=== PATIENT | male | born 1955 | race Caucasian/White ===

== ENCOUNTER → 2017-07-25 | Outpatient (CLI) | payer OTHER ==
[~2017-07-25] MED LIST: METHACHOLINE KIT (J7674) INH
== END ==
LOC: M CARPUL 08:24
DX: R06.02 Shortness of breath (principal)
CPT/HCPCS: J7674

== ENCOUNTER → 2018-05-14 | Outpatient (REF) ==
--- NOTE | 2018-05-15 04:18 | REP ---
Clinical: Pain. Technique: Internal rotation, external rotation, and Y view of the right shoulder. Findings: Moderate age-related degenerative changes include subtle spurring at the acromioclavicular joint. The subacromial space is normal. A small calcification is identified adjacent to the greater tuberosity of the humeral head suggesting calcific tendinopathy. No acute fracture or dislocation appreciated. Impression: Moderate age-related degenerative changes and findings to suggest calcific tendinopathy. Electronically Signed by Bryce Velazquez MD 05/15/2018 04:09 A
--- NOTE | 2018-05-15 04:30 | REP ---
Clinical: Pain and disability. Technique: AP, lateral, bilateral oblique and sunrise views of the left knee. Findings: Mild/moderate tricompartmental degenerative changes include subchondral sclerosis, marginal spurring/osteophyte formation, and minimal predominantly medial joint space narrowing. No acute fracture or dislocation. No effusion. Impression: Moderate tricompartmental degenerative changes. Electronically Signed by Bryce Velazquez MD 05/15/2018 04:22 A
== END ==
LOC: M SMT 09:13
PROVIDERS: ATTEND Internal Medicine
DX: Z02.71 Encounter for disability determination (principal)

== ENCOUNTER → 2019-04-17 | Outpatient (CLI) | payer OTHER | LOC: M LAB 15:03 | PROVIDERS: ATTEND Internal Medicine Gastroenterology | DX: K75.81 Nonalcoholic steatohepatitis (NASH) (principal) ==

== ENCOUNTER 2019-10-27 12:57 | Day surgery (SDC) | payer OTHER ==
[~2019-10-27] VITALS: Ht 172.7 cm; Wt 95.3 kg
[~2019-10-27 12:57] MED LIST changes: +ASPI81TA26 PO; +CRES40TA PO; +CYAN100050 PO; +CYCL-707 PO; +DOCU100C16 PO; +FELO5TAB26 PO; +FENO48TA7 PO; +FERR325T18 PO; +GLIP5TAB20 PO; +GLUC1CAP28 PO; +JANU50TA8 PO; +JARD1TAB PO; +LIDO1PAD TOP; +LOSA100T5 PO; -METHACHOLINE KIT (J7674) INH; +MULTCAP PO; +NS 1,000 ML IV ONE; +OMEP-218 PO; +TRAM50TA2 PO; +TRUL10IN SQ; +TURM500C PO; +VASC1CAP2 PO; +[UNRECOGNIZED DRUG - CODE] PO
[2019-10-27] MEDS ORDERED: LIDOCAINE 2% 100MG/5ML SDV (FOR ANES.) As Ordered ONE (13:06)
[2019-10-27] MEDS ORDERED: propofoL 200 MG/20 ML VIAL As Ordered ONE ×2 (13:07→14:34)
--- NOTE | 2019-10-27 15:02 | ROOR ---
Patient Name: Selvin Joseph Procedure Date: 10/27/2019 2:38 PM Date of : 1955 Age: 64 Room: [facility] Gender: Male Note Status: Finalized Procedure: Colonoscopy Indications: Change in bowel habits Providers: Juan ROTHMAN MD Referring MD: GHAZALA GARCIA MD Requesting Provider: Medicines: Monitored Anesthesia Care Complications: No immediate complications. Procedure: Pre-Anesthesia Assessment: - The heart rate, respiratory rate, oxygen saturations, blood pressure, adequacy of pulmonary ventilation, and response to care were monitored throughout the procedure. The Colonoscope was introduced through the anus and advanced to 10 cm into the ileum. The colonoscopy was performed without difficulty. The patient tolerated the procedure well. The quality of the bowel preparation was good. Findings: Hemorrhoids were found on perianal exam. Internal hemorrhoids were found during retroflexion. The hemorrhoids were moderate. A few small-mouthed diverticula were found in the sigmoid colon. The entire examined colon appeared normal on direct and retroflexion views. Impression: - Internal hemorrhoids. - Minimal diverticulosis in the sigmoid colon. - The colon is otherwise normal on direct and retroflexion views. - The terminal ileum is normal. - No specimens collected. Recommendation: - Use fiber, for example Citrucel, Fibercon, Konsyl or Metamucil. - Return to referring physician as previously scheduled. Juan Rothman MD Juan ROTHMAN MD 10/27/2019 3:02:16 PM Electronically signed by Juan ROTHMAN MD Number of Addenda: 0 Note Initiated On: 10/27/2019 2:38 PM Estimated Blood Loss: Estimated blood loss: none.
[2019-10-27 15:22] VITALS: BP 133/83
== END 2019-10-27 15:24 | disposition home or self-care (01) ==
LOC: M OPP 12:57
PROVIDERS: ATTEND Internal Medicine Gastroenterology
DX: K57.30 Diverticulosis of large intestine without perforation or abscess without bleeding (principal); K64.0 First degree hemorrhoids; R19.4 Change in bowel habit; Z79.82 Long term (current) use of aspirin; Z79.84 Long term (current) use of oral hypoglycemic drugs; Z79.891 Long term (current) use of opiate analgesic; Z79.899 Other long term (current) drug therapy

== ENCOUNTER → 2020-06-13 | Outpatient (CLI) | payer OTHER ==
[~2020-06-13] MED LIST changes: -GLUC1CAP28 PO; +GLUC500C55 PO; -NS 1,000 ML IV ONE
== END ==
LOC: M LABSMTC 10:11
PROVIDERS: ATTEND Thoracic Surgery (Cardiothoracic Vascular Surgery)
DX: Z20.822 Contact with and (suspected) exposure to COVID-19 (principal); R06.02 Shortness of breath